=== PATIENT | male | born 1950 | race Caucasian/White ===

== ENCOUNTER 2018-05-31 09:45 | Outpatient (REF) | payer MEDICARE, SELFPAY ==
[2018-05-31 20:57] LABS: Hemoglobin A1C 6.2 % (4.5-6.2)
[2018-05-31 21:03] LABS: ALT 24 U/L (12-78); AST 15 U/L (15-37); Albumin 3.7 g/dL (3.4-5.0); Alkaline Phosphatase 103 U/L (46-116); Anion Gap 8.9 mmol/L (3-11); BUN 33 mg/dL (7-18); Bilirubin, Total 0.5 mg/dL (0.2-1.0); CO2 24.1 mmol/L (21.0-32.0); CREATININE 1.65 mg/dL (0.70-1.30); Calcium 9.5 mg/dL (8.5-10.1); Chloride 104 mmol/L (98-107); Cholesterol 147 mg/dL (50-200); Estimated GFR 41.95 (mL/min/1.73m2); Glucose 113 mg/dL (70-100); HDL Cholesterol 30 mg/dL (40-60); LDL CHOLESTEROL 89 mg/dL (<100); Potassium 4.3 mmol/L (3.5-5.1); Sodium 137 mmol/L (136-145); Total Protein 6.9 g/dL (6.4-8.2); Triglyceride 197 mg/dL (30-150)
== END 2018-05-31 09:46 ==
LOC: NCHCN 09:45
PROVIDERS: PCP Family Medicine; Visit Provider Family Medicine
DX: I10 Essential (primary) hypertension (principal); R73.09 Other abnormal glucose; E78.5 Hyperlipidemia, unspecified
CPT/HCPCS: 80053; 80061; 83721; 83036

== ENCOUNTER 2018-08-30 10:07 | Outpatient (REF) | payer MEDICARE, SELFPAY ==
[2018-08-30 21:57] LABS: Sodium 139 mmol/L (136-145)
[2018-08-30 22:13] LABS: ALT 23 U/L (12-78); AST 16 U/L (15-37); Albumin 3.8 g/dL (3.4-5.0); Alkaline Phosphatase 97 U/L (46-116); Anion Gap 9.4 mmol/L (3-11); BUN 41 mg/dL (7-18); Bilirubin, Total 0.5 mg/dL (0.2-1.0); CO2 26.6 mmol/L (21.0-32.0); CREATININE 1.81 mg/dL (0.70-1.30); Chloride 103 mmol/L (98-107); Cholesterol 120 mg/dL (50-200); Glucose 106 mg/dL (70-100); HDL Cholesterol 31 mg/dL (40-60); LDL CHOLESTEROL 70 mg/dL (<100); Potassium 4.6 mmol/L (3.5-5.1); Total Protein 7.1 g/dL (6.4-8.2); Triglyceride 114 mg/dL (30-150)
[2018-08-30 23:16] LABS: Hemoglobin A1C 6.1 % (4.5-6.2)
== END 2018-08-30 10:27 ==
LOC: NCHCN 10:07
PROVIDERS: PCP Family Medicine; Visit Provider Family Medicine
DX: E88.81 Metabolic syndrome and other insulin resistance (principal); R73.09 Other abnormal glucose; E78.1 Pure hyperglyceridemia; E66.9 Obesity, unspecified; N40.0 Benign prostatic hyperplasia without lower urinary tract symptoms
CPT/HCPCS: 80053; 80061; 83721; 83036

== ENCOUNTER 2019-03-05 10:32 | Outpatient (REF) | payer MEDICARE, SELFPAY ==
[2019-03-05 22:02] LABS: HGB 12.9 g/dL (13.5-17.5); Mean Corp. HGB Concentration 33.1 g/dL (32.0-36.0); Mean Corpuscular Hemoglobin 33.6 pg (27.0-33.0); Mean Corpuscular Volume 101.6 fL (80-95); Mean Platelet Volume 11.8 fL (8.0-11.0); Platelet Count 183 x1000/uL (130-400); RBC 3.84 m/cumm (4.50-6.00); RBC Distribution Width 13.9 % (11.8-14.1); White Blood Cell Count 5.89 k/cumm (4.4-10.8)
[2019-03-05 22:43] LABS: Anion Gap 7.6 mmol/L (3-11); BUN 31 mg/dL (7-18); CO2 25.4 mmol/L (21.0-32.0); CREATININE 1.38 mg/dL (0.70-1.30); Calcium 8.7 mg/dL (8.5-10.1); Chloride 105 mmol/L (98-107); Glucose 94 mg/dL (70-100); Potassium 4.8 mmol/L (3.5-5.1); Sodium 138 mmol/L (136-145); TSH (W/Ref FT4) 1.38 uIU/mL (0.358-3.74); Vitamin B12 307 pg/mL (193-986)
[2019-03-06 06:27] LABS: Vitamin D 25 Total 25.1 ng/ml (30-100)
[2019-03-10 09:36] LABS: Folate 13.3 ng/ml
== END 2019-03-05 10:52 ==
LOC: NCHCN 10:32
PROVIDERS: PCP Family Medicine; Visit Provider Family Medicine
DX: R53.83 Other fatigue (principal); R73.09 Other abnormal glucose; N18.3 Chronic kidney disease, stage 3 (moderate); D53.9 Nutritional anemia, unspecified; F43.21 Adjustment disorder with depressed mood; E66.9 Obesity, unspecified
CPT/HCPCS: 80048; 82306; 85027; 82607; 82746; 84443

== ENCOUNTER 2019-05-12 11:04 | Outpatient (REF) | payer MEDICARE, SELFPAY ==
[2019-05-12 21:14] LABS: HCT 41.8 % (40.0-50.0); HGB 13.9 g/dL (13.5-17.5); Mean Corp. HGB Concentration 33.3 g/dL (32.0-36.0); Mean Corpuscular Hemoglobin 33.7 pg (27.0-33.0); Mean Corpuscular Volume 101.5 fL (80-95); Mean Platelet Volume 11.9 fL (8.0-11.0); Platelet Count 177 x1000/uL (130-400); RBC 4.12 m/cumm (4.50-6.00); RBC Distribution Width 13.7 % (11.8-14.1); White Blood Cell Count 4.62 k/cumm (4.4-10.8)
[2019-05-12 21:40] LABS: Vitamin B12 686 pg/mL (193-986)
[2019-05-12 21:42] LABS: Vitamin D 25 Total 44.7 ng/ml (30-100)
== END 2019-05-12 11:24 ==
LOC: NCHCN 11:04
PROVIDERS: PCP Family Medicine; Visit Provider Family Medicine
DX: E55.9 Vitamin D deficiency, unspecified (principal); E53.8 Deficiency of other specified B group vitamins; D53.9 Nutritional anemia, unspecified
CPT/HCPCS: 82306; 85027; 82607

== ENCOUNTER 2019-09-02 14:04 | Outpatient (REF) | payer MEDICARE, SELFPAY ==
[2019-09-02 21:09] LABS: HCT 38.5 % (40.0-50.0); Mean Corp. HGB Concentration 33.8 g/dL (32.0-36.0); Mean Corpuscular Volume 100.8 fL (80-95); Platelet Count 175 x1000/uL (130-400); RBC 3.82 m/cumm (4.50-6.00); White Blood Cell Count 4.97 k/cumm (4.4-10.8)
[2019-09-02 21:30] LABS: ALT 20 U/L (16-63); AST 16 U/L (15-37); Albumin 3.5 g/dL (3.4-5.0); Alkaline Phosphatase 87 U/L (46-116); Anion Gap 7.9 mmol/L (3-11); BUN 32 mg/dL (7-18); Bilirubin, Total 0.3 mg/dL (0.2-1.0); CO2 27.1 mmol/L (21.0-32.0); CREATININE 1.66 mg/dL (0.70-1.30); Chloride 106 mmol/L (98-107); Estimated GFR 41.53 (mL/min/1.73m2); Glucose 112 mg/dL (74-106); Potassium 4.6 mmol/L (3.5-5.1); Sodium 141 mmol/L (136-145); Total Protein 6.6 g/dL (6.4-8.2)
== END 2019-09-02 14:24 ==
LOC: NCHCN 14:04
PROVIDERS: PCP Family Medicine; Visit Provider Family Medicine
DX: N18.3 Chronic kidney disease, stage 3 (moderate) (principal)
CPT/HCPCS: 80053; 85027

== ENCOUNTER 2019-10-23 12:55 | Outpatient (REF) | payer MEDICARE, SELFPAY ==
--- NOTE | 2019-10-23 10:45 | SKI_PTH ---
PATIENT: Clyde Avila LOC: [facility] U#:[id number] AGE/SX: 69/M ROOM: RE10/23/[address]: Gilbert Wharton : 1950 BED: DIS: 10/23/2019 SPEC #: [id number] RECD: 10/24/19 12:14 STATUS: MARIFER SMITH #: [id number] LAURA: 10/23/19 10:[address]: Gilbert Wharton DEPT: Surgical Specimen RECD BY: Suly Espinoza Tissues: 1 - SKIN BIOPSY(SHAVE/PUNCH) Procedures: SKIN LEVEL 4 Comments: [id number]
== END 2019-10-23 13:15 ==
LOC: NCHCN 12:55
PROVIDERS: PCP Family Medicine; Visit Provider Family Medicine
DX: D04.5 Carcinoma in situ of skin of trunk (principal)
CPT/HCPCS: 88305

== ENCOUNTER 2019-11-06 10:53 | Outpatient (REF) | payer MEDICARE, SELFPAY ==
[2019-11-06 21:51] LABS: Anion Gap 11.3 mmol/L (3-11); BUN 28 mg/dL (7-18); CO2 24.7 mmol/L (21.0-32.0); CREATININE 1.29 mg/dL (0.70-1.30); Calcium 9.8 mg/dL (8.5-10.1); Chloride 103 mmol/L (98-107); Estimated GFR 55.56 (mL/min/1.73m2); Glucose 100 mg/dL (74-106); Potassium 4.1 mmol/L (3.5-5.1); Sodium 139 mmol/L (136-145)
[2019-11-10 10:03] LABS: PSA, Screening 0.5 ng/mL (0.0-4.5)
== END 2019-11-06 11:13 ==
LOC: NCHCN 10:53
PROVIDERS: PCP Family Medicine; Visit Provider Family Medicine
DX: N40.0 Benign prostatic hyperplasia without lower urinary tract symptoms (principal); R35.1 Nocturia; R39.15 Urgency of urination; Z12.5 Encounter for screening for malignant neoplasm of prostate
CPT/HCPCS: 80048; 84153; 87086

== ENCOUNTER 2020-03-02 10:18 | Outpatient (REF) | payer MEDICARE, SELFPAY ==
[2020-03-02 21:15] LABS: HCT 39.4 % (40.0-50.0); HGB 13.3 g/dL (13.5-17.5); Mean Corp. HGB Concentration 33.8 g/dL (32.0-36.0); Mean Corpuscular Hemoglobin 34.3 pg (27.0-33.0); Mean Corpuscular Volume 101.5 fL (80-95); Mean Platelet Volume 11.8 fL (8.0-11.0); Platelet Count 184 x1000/uL (130-400); RBC 3.88 m/cumm (4.50-6.00); RBC Distribution Width 13.8 % (11.8-14.1); White Blood Cell Count 5.29 k/cumm (4.4-10.8)
[2020-03-02 21:25] LABS: Anion Gap 3.2 mmol/L (3-11); BUN 22 mg/dL (7-18); CO2 28.8 mmol/L (21.0-32.0); Calcium 9.1 mg/dL (8.5-10.1); Calculated LDL 75 mg/dL (<100); Chloride 103 mmol/L (98-107); Cholesterol 139 mg/dL (<200); Glucose 99 mg/dL (74-106); HDL Cholesterol 32 mg/dL (40-60); Potassium 4.2 mmol/L (3.5-5.1); Sodium 135 mmol/L (136-145); Triglyceride 162 mg/dL (<150)
[2020-03-02 21:31] LABS: Hemoglobin A1C 6.4 % (3.8-5.6)
== END 2020-03-02 10:38 ==
LOC: NCHCN 10:18
PROVIDERS: PCP Family Medicine; Visit Provider Family Medicine
DX: R73.03 Prediabetes (principal); E78.5 Hyperlipidemia, unspecified; I10 Essential (primary) hypertension; E88.81 Metabolic syndrome and other insulin resistance; D53.9 Nutritional anemia, unspecified; D04.9 Carcinoma in situ of skin, unspecified
CPT/HCPCS: 80048; 80061; 85027; 83036

== ENCOUNTER 2020-06-11 11:14 | Outpatient (REF) | payer MEDICARE, SELFPAY ==
[2020-06-11 20:42] LABS: Hemoglobin A1C 6.4 % (<5.7)
== END 2020-06-11 11:34 ==
LOC: NCHCN 11:14
PROVIDERS: PCP Family Medicine; Visit Provider Family Medicine
DX: E11.9 Type 2 diabetes mellitus without complications (principal)
CPT/HCPCS: 83036

== ENCOUNTER 2020-10-15 08:24 | Outpatient (REF) | payer MEDICARE, SELFPAY ==
[2020-10-15 14:08] LABS: HCT 41.6 % (40.0-50.0); HGB 13.8 g/dL (13.5-17.5); MCH 33.9 pg (27.0-33.0); MCHC 33.2 % (32.0-36.0); MCV 102.2 fL (80-95); MPV 11.8 fL (8.0-11.0); Platelet Count 178 10^3/uL (130-400); RBC 4.07 10^6/uL (4.36-5.78); RDW 13.9 % (11.8-14.1); RDW-SD 51.4 fL
[2020-10-15 14:13] LABS: ALT 27 U/L (16-63); AST 19 U/L (15-37); Albumin 3.6 g/dL (3.4-5.0); Alkaline Phosphatase 82 U/L (46-116); Anion Gap 7.4 mmol/L (3-11); BUN 28 mg/dL (7-18); Bilirubin, Total 0.4 mg/dL (0.2-1.0); CO2 28.6 mmol/L (21.0-32.0); CREATININE 1.45 mg/dL (0.70-1.30); Calcium 8.9 mg/dL (8.5-10.1); Calculated LDL 87 mg/dL (<100); Chloride 102 mmol/L (98-107); Cholesterol 139 mg/dL (<200); Glucose 124 mg/dL (74-106); HDL Cholesterol 33 mg/dL (40-60); Potassium 4.6 mmol/L (3.5-5.1); Sodium 138 mmol/L (136-145); Triglyceride 97 mg/dL (<150)
[2020-10-15 14:47] LABS: Hemoglobin A1C 6.4 % (<5.7)
[2020-10-18 05:44] LABS: Vitamin D 25 Total 52.4 ng/ml (30-100)
== END 2020-10-15 08:44 ==
LOC: NCHCN 08:24
PROVIDERS: PCP Family Medicine; Visit Provider Family Medicine
DX: D53.9 Nutritional anemia, unspecified (principal); E78.5 Hyperlipidemia, unspecified; R73.03 Prediabetes; E55.9 Vitamin D deficiency, unspecified; E66.9 Obesity, unspecified; E88.81 Metabolic syndrome and other insulin resistance; N18.30 Chronic kidney disease, stage 3 unspecified
CPT/HCPCS: 80053; 80061; 82306; 85027; 83036

== ENCOUNTER 2021-01-25 14:09 | Outpatient (REF) | payer MEDICARE, SELFPAY ==
[2021-01-25 20:59] LABS: Hemoglobin A1C 6.4 % (<5.7)
== END 2021-01-25 14:10 | disposition home or self-care (01) ==
LOC: NCHCN 14:09
PROVIDERS: PCP Family Medicine; Visit Provider Family Medicine
DX: R73.03 Prediabetes (principal)
CPT/HCPCS: 83036

== ENCOUNTER 2021-04-26 14:09 | Outpatient (REF) | payer MEDICARE, SELFPAY ==
[2021-04-26 21:47] LABS: Anion Gap 12.7 mmol/L (3-11); BUN 35 mg/dL (7-18); CO2 24.3 mmol/L (21.0-32.0); CREATININE 1.9 mg/dL (0.70-1.30); Calcium 9.3 mg/dL (8.5-10.1); Chloride 106 mmol/L (98-107); Estimated GFR 35.32 (mL/min/1.73m2); Glucose 106 mg/dL (74-106); Potassium 3.9 mmol/L (3.5-5.1); Sodium 143 mmol/L (136-145)
[2021-04-26 22:03] LABS: Hemoglobin A1C 6.5 % (<5.7)
== END 2021-04-26 14:10 | disposition home or self-care (01) ==
LOC: NCHCN 14:09
PROVIDERS: PCP Family Medicine; Visit Provider Family Medicine
DX: R73.03 Prediabetes (principal); E66.9 Obesity, unspecified; I10 Essential (primary) hypertension; E78.5 Hyperlipidemia, unspecified
CPT/HCPCS: 80048; 83036